=== PATIENT | female | born 1990 | race Caucasian/White ===

== ENCOUNTER 2018-04-26 08:50 | Emergency (ER) | payer OTHER ==
[2018-04-26 09:02] VITALS: BP 118/71; PULSE 72; TEMP 98.7; BMI 31.5
--- NOTE | 2018-04-26 09:38 | PDOC ---
History of Present Illness - General Stated Complaint: RASH Time Seen by Provider: 04/26/18 09:22 History Source: Patient Exam Limitations: No Limitations - History of Present Illness Initial Comments: 04/26/18 09:33 28 yr female with c/o ithcy rash for one week. Pt is 37 weeks , denies any change in lotion or shampoos. Pt denies fever or chills. no abd pain or diff breathing. Pt states active movement no complaints. Past History - Past Medical History Home Medications: Ambulatory Orders NK [No Known Home Medication] 04/26/18 COPD: No - Immunization History Immunization Up to Date: Yes - Suicide/Smoking/Psychosocial Hx Smoking History: Never smoked Have you smoked in the past 12 months: No Hx Alcohol Use: No Drug/Substance Use Hx: No Review of Systems - Review of Systems Able to Perform ROS?: Yes Is the patient limited Brazilian proficient: No Constitutional: No: Symptoms Reported HEENTM: No: Symptoms Reported Respiratory: No: Symptoms reported Cardiac (ROS): No: Symptoms Reported ABD/GI: No: Symptoms Reported : No: Symptoms Reported Musculoskeletal: No: Symptoms Reported Integumentary: Yes: Symptoms Reported, Rash *Physical Exam - Vital Signs Last Vital Signs Temp Pulse Resp BP Pulse Ox 98.7 F 72 16 118/71 97 04/26/18 08:58 04/26/18 08:58 04/26/18 08:58 04/26/18 08:58 04/26/18 08:58 - Physical Exam General Appearance: Yes: Nourished, Appropriately Dressed HEENT: positive: EOMI, [place], TMs Normal, Pharynx Normal Neck: positive: Supple Respiratory/Chest: positive: Lungs Clear, Normal Breath Sounds Cardiovascular: positive: Regular Rhythm, Regular Rate Gastrointestinal/Abdominal: positive: Normal Bowel Sounds, Soft Musculoskeletal: positive: Normal Inspection Extremity: positive: Normal Capillary Refill, Normal Inspection, Normal Range of Motion Integumentary: positive: Normal Color, Dry, Warm, Rash Neurologic: positive: Fully Oriented, Alert, Normal Mood/Affect, Normal Response , Motor Strength 5/5 Medical Decision Making - Medical Decision Making 04/26/18 09:36 cc: itchy rash all over for one week denies diff breathing or speaking no distress no fever rash is to the forearms and back no abd rash, no pustules or vesicles erythematous fine rash , puritic no hives will refer to derm and OB start antihistamines *DC/Admit/Observation/Transfer Diagnosis at time of Disposition: Rash and nonspecific skin eruption - Discharge Dispostion Disposition: HOME Condition at time of disposition: Good - Referrals Referrals: Stephy Tellez MD [Staff Physician] - - Patient Instructions Additional Instructions: please call your OB today to make a follow up appointment for this week take cool baths and use an oatmeal type soap to help soothe the rash make sure you have not changed any detergents, soaps, shampoo or any medicines take a daily antihistamine such as claritin or estrada daily for the itching 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
== END 2018-04-26 09:48 | disposition home or self-care (01) ==
LOC: JERFT 08:50
DX: O26.893 Other specified pregnancy related conditions, third trimester (principal); R21 Rash and other nonspecific skin eruption; Z3A.37 37 weeks gestation of pregnancy
CPT/HCPCS: 99281-25

== ENCOUNTER 2018-04-27 10:37 | Inpatient (IN) | payer OTHER ==
[2018-04-27 12:07] VITALS: BMI 31.5
[2018-04-27 12:09] LABS: BASO % 0.5 % (0-2.0); EOS % 0.4 % (0-4.5); HEMATOCRIT 36.4 % (32.4-45.2); MCH 30.2 pg (25.7-33.7); MEAN CELL VOLUME 91.4 fl (80-96); MEAN PLT VOLUME 9.9 fl (7.5-11.1); MONO % 7.5 % (3.8-10.2); NEUT % 76.6 % (42.8-82.8); PLATELET COUNT 189 K/MM3 (134-434); RBC 3.98 M/mm3 (3.60-5.2); RDW 13.2 % (11.6-15.6); WHITE BLOOD COUNT 7.9 K/mm3 (4.0-10.0)
[2018-04-27] MEDS ORDERED: DINOPROSTONE 10 MG VAGINAL SUPPOSITORY VG ONE (12:15)
[2018-04-27 12:27] LABS: ANION GAP 9 MMOL/L (8-16); BLOOD UREA NITROGEN 11 mg/dL (7-18); CALCIUM 8.5 mg/dL (8.5-10.1); CHLORIDE 106 mmol/L (98-107); CO2 22 mmol/L (21-32); CREATININE 0.5 mg/dL (0.55-1.3); GLUCOSE,RANDOM 73 mg/dL (74-106); POTASSIUM 3.8 mmol/L (3.5-5.1); SODIUM 137 mmol/L (136-145)
[2018-04-27 12:35] LABS: INR 1.04 (0.83-1.09); PROTHROMBIN TIME (PATIENT) 11.7 SEC (9.7-13.0)
[2018-04-27] MEDS ORDERED: TUBERCULIN PPD 5 TU/0.1ML SYRINGE (IN PATIENT USE ONLY) ID ONE (13:00)
--- NOTE | 2018-04-27 17:04 | HP ---
Admitting History and Physical - Admission Chief Complaint: indux for cholestasis History of Present Illness: 28 y/o at 37 weeks with dx of cholestasis for iol. R/b explained. in 2015. blood type is o pos, hep nr, rubella-, rpr neg, gbs neg. 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: Alzheimer's, CVA, Dementia, Migraine, Multiple Sclerosis, Peripheral Neuropathy, Parkinson's, Seizure, Syncope, TIA, Vertigo, Other Cardiovascular: No: AFIB, Aneurysm, Aortic Insufficiency, Aortic Stenosis, CAD, CHF, Deep Vein Thrombosis, HTN, Hyperlipdemia, IA, Mitral Insufficiency, Mitral Stenosis, Murmur, Pulmonary Hypertension, Other Pulmonary: No: Asthma, Bronchitis, Cancer, COPD, O2 Dependent, Pneumonia, Previously Intubated, Pulmonary Embolus, Pulmonary Fibrosis, Sleep Apnea, Other Gastrointestinal: No: Ascites, Cancer, Constipation, Crohn's Disease, Diverticulitis, Diverticulosis, Esophageal Varices, Gastritis, GERD, GI Bleed, Hemorrhoids, Hiatal Hernia, Inflamatory Bowel Disease, Irritable Bowel Disease, Pancreatitis, Peptic Ulcer Disease, Ulcerative Colitis, Other Hepatobiliary: No: Cirrhosis, Cholelithiasis, Cholecystitis, Choledocholithiasis , Hepatitis A, Hepatitis B, Hepatitis C, Other Renal/: No: Renal Failure, Renal Inusuff, BPH, Cancer, Hematuria, Hemodialysis , Neurogenic Bladder, Renal Calculi, UTI, Other Reproductive: No: Ectopic , Endometriosis, Fibroids, PID, Polycystic Ovary Syndrome, Postmenopausal, Other ...: 2 ...Para: 1 Heme/Onc: No: Anemia, B12 Deficiency, Bleeding Disorder, Cancer, Current Chemotherapy, Current Radiation Therapy, Hemochromatosis, Hypercoaguable State, Myeloproliferative Synd, Sickle Cell Disease, Sickle Cell Trait, Thrombocytopenia, Other Infectious Disease: No: AIDS, C-Diff, Herpes Zoster, HIV, MRSA, STD's, Tuberculosis, VREF, Other Psych: No: Addictions, Anxiety, Bipolar, Depression, Panic, Psychosis, Schizophrenia, Other Musculoskeletal: No: Bursitis, Chronic low back pain, Hemiparesis, Hemiplegia, Osteoarthritis, Paraplegia, Other Rheumatology: No: Fibromyalgia, Gout, Lupus, Rheumatoid Arthritis, Sarcoidosis, Vasculitis, Other ENT: No: Allergic Rhinitis, Sinusitis, Other Endocrine: No: [place]'s Disease, [place]'s Disease, Diabetes Insipidus, Diabetes Mellitus, Hyperparathyroidism, Hyperthyroidism, Hypothyroidism, Osteopenia, SIADH, Other Dermatology: No: Basal Cell, Cellulitis, Eczema, Melanoma, Psoriasis, Squamous Cell, Other - Smoking History Smoking history: Never smoked Have you smoked in the past 12 months: No - Alcohol/Substance Use Hx Alcohol Use: No Home Medications - Allergies Allergies/Adverse Reactions: Allergies Allergy/AdvReac Type Severity Reaction Status Date / Time No Known Allergies Allergy Verified 04/27/18 11:14 - Home Medications Home Medications: Ambulatory Orders Vitamins (Sjr) - 1 tab PO DAILY 04/27/18 Review of Systems - Review of Systems Constitutional: denies: No Symptoms, Chills, Diaphoresis, Fever, Lethargy, Loss of Appetite, Malaise, Night Sweats, Unintentional Wgt. Loss, Weakness, Other Eyes: reports: No Symptoms HENT: reports: No Symptoms Neck: reports: No Symptoms Cardiovascular: reports: No Symptoms Respiratory: reports: No Symptoms Gastrointestinal: reports: No Symptoms Genitourinary: reports: No Symptoms Breasts: reports: No Symptoms Reported Musculoskeletal: reports: No Symptoms Integumentary: reports: No Symptoms Neurological: reports: No Symptoms Physical Examination Vital Signs: Vital Signs Temperature 98.1 F 04/27/18 14:00 Pulse Rate 66 04/27/18 16:00 Respiratory Rate 20 04/27/18 16:00 Blood Pressure 121/71 04/27/18 16:00 O2 Sat by Pulse Oximetry (%) Constitutional: Yes: Well Nourished Eyes: Yes: WNL HENT: Yes: WNL Neck: Yes: WNL Cardiovascular: Yes: WNL Respiratory: Yes: WNL Gastrointestinal: Yes: WNL (1-2cm/long/-3) Breast(s): Yes: WNL Labs: CBC, BMP 04/27/18 11:45 04/27/18 11:45 Assessment/Plan as above cervidil placed in post fornix at 5pm nst reactive pain meds prn r/b explained
[2018-04-27] MEDS ORDERED: DEXTROSE 5%-WATER - 1,000 ML IV SCH (17:30)
--- NOTE | 2018-04-27 22:36 | PN ---
Ante-Partal Exam - Subjective Subjective: Pt s/p cervidil at 5pm. Comfortable Vital Signs: Vital Signs Temperature 98.3 F 04/27/18 20:00 Pulse Rate 69 04/27/18 20:00 Respiratory Rate 18 04/27/18 20:00 Blood Pressure 121/75 04/27/18 20:00 O2 Sat by Pulse Oximetry (%) Bleeding: No Headache: No Visual changes: No Right upper quadrant pain: No - Contractions Contractions: No Intensity: Unaware Monitor Mode: None - Exam during Labor Category: I Monitor Accelerations: Present Monitor Decelerations: None (pt with cervidil in place; category 1 tracing. Continue current care)
[2018-04-27] MEDS ORDERED: BUTORPHANOL TARTRATE 1 MG/ML VIAL IVPUSH PRN (22:59)
[2018-04-27] MEDS ORDERED: PROMETHAZINE HCL 25 MG/1 ML VIAL IVPB PRN (23:03)
[2018-04-28] MEDS ORDERED: LACTATED RINGERS SOLUTION 1,000 ML IV SCH (05:30)
[2018-04-28] MEDS ORDERED: OXYTOCIN 30 UNITS in 0.9% NS 30 UNIT/500 ML INFUS.BAG IVPB SCH (12:30)
--- NOTE | 2018-04-28 12:37 | PN ---
Progress Note (short form) - Note Progress Note: 28 yo @ 37 weeks gestation, EDC 05/18/18, admitted for induction of labor due to Cholestasis of . She's status post cervidil induction. FHR : Reassuring [place] : + irregular contractions VE : 2-3 / 70/-2 A/P : 37 weeks gestation Cholestasis of S/P Cervidil induction Start pitocin Analgesia as needed Anticipate
[2018-04-28] MEDS ORDERED: OXYTOCIN 30 UNITS in 0.9% NS 30 UNIT/500 ML INFUS.BAG IVPB ONE (13:35)
[2018-04-28] MEDS ORDERED: DEXTROSE 5%-LACTATED RINGERS 1,000 ML IV SCH (15:00)
--- NOTE | 2018-04-28 15:56 | PN ---
Progress Note (short form) - Note Progress Note: Patient re-evaluated. No complaints. VE : /-2 AROM ( light Mec ) A/P : Status post Cervidil induction Continue Pitocin augmentation Anticipate
[2018-04-28] MEDS ORDERED: WITCH HAZEL 50% (TUCKS) 40 PAD/JAR PAD TP PRN (19:13)
[2018-04-28] MEDS ORDERED: BENZOCAINE 28 GM HEMORRHOIDAL OINTMENT TP PRN (19:13)
[2018-04-28] MEDS ORDERED: BENZOCAINE 20% 57 GM BOTTLE TP PRN (19:13)
[2018-04-28] MEDS ORDERED: METHYLERGONOVINE MALEATE 0.2 MG/1 ML AMP IM PRN (19:13)
[2018-04-28] MEDS ORDERED: BISACODYL 10 MG SUPP.RECT RC PRN (19:13)
[2018-04-28] MEDS ORDERED: OXYTOCIN 20 UNITS in 0.9% NS 20 UNIT/1,000 ML INFUS.BAG IV SCH (19:15)
--- NOTE | 2018-04-28 19:16 | PN ---
Delivery - Delivery Vaginal Delivery: Spontaneous Episiotomy/Laceration: None EBL (cc): 300 Delivery, Single - Feeding Plan Initial Plan: Elected not to breastfeed exclusively throughout hospitalization Remarks - Remarks Remarks: Normal spontaneous vaginal delivery of a live infant over intact perineum. Nose / Oropharynx suctioned @ perineum. Cord clamped and cut. Placenta expelled spontaneously intact. 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 Mother in stable condition.
[2018-04-28] MEDS ORDERED: OXYTOCIN 20 UNITS in 0.9% NS 20 UNIT/1,000 ML INFUS.BAG IV ONE (20:17)
[2018-04-28] MEDS: ACETAMINOPHEN 325 MG TABLET (FP) PO PRN (21:40)
[2018-04-28] MEDS: IBUPROFEN 600 MG TABLET (FP) PO PRN (21:42)
[2018-04-29 07:10] LABS: BASO % 0.2 % (0-2.0); EOS % 0.3 % (0-4.5); HEMATOCRIT 32.6 % (32.4-45.2); HEMOGLOBIN 10.8 GM/dL (10.7-15.3); LYMPH % 16.9 % (8-40); MCH 30.7 pg (25.7-33.7); MCHC 33.2 g/dl (32.0-36.0); MEAN CELL VOLUME 92.3 fl (80-96); MEAN PLT VOLUME 9.8 fl (7.5-11.1); MONO % 7.3 % (3.8-10.2); NEUT % 75.3 % (42.8-82.8); PLATELET COUNT 165 K/MM3 (134-434); RBC 3.53 M/mm3 (3.60-5.2); RDW 13.5 % (11.6-15.6); WHITE BLOOD COUNT 11.6 K/mm3 (4.0-10.0)
[2018-04-29] MEDS: FERROUS SO4 325 MG TABLET (FP) PO SCH ×2 (07:51→18:06)
[2018-04-29] MEDS: IBUPROFEN 600 MG TABLET (FP) PO PRN (07:51)
[2018-04-29] MEDS: ACETAMINOPHEN 325 MG TABLET (FP) PO PRN (07:52)
[2018-04-29] MEDS: PRENATAL VITAMINS W/ FOLIC ACID TABLET (FP) PO SCH (10:00)
--- NOTE | 2018-04-29 15:23 | PN ---
Post Progress Note - Subjective Subjective: 28 yo Para 2 status post vaginl delivery, seen and evaluated. Doing well. Post Day: 1 Type of Delivery: Vital Signs: Vital Signs Temperature 98.1 F 04/29/18 10:00 Pulse Rate 55 L 04/29/18 10:00 Respiratory Rate 18 04/29/18 10:00 Blood Pressure 101/60 04/29/18 10:00 O2 Sat by Pulse Oximetry (%) Breast Exam: Yes: Soft Uterus: Yes: Fundus Firm Abdomen/GI: Yes: Abdomen soft Lochia: Yes: Rubra Lochia, amount: Moderate Extremities: Yes: Calves non-tender Perineum: Yes: Intact Activity: Ambulating - Labs Labs: CBC WBC 11.6 K/mm3 (4.0-10.0) H 04/29/18 06:35 RBC 3.53 M/mm3 (3.60-5.2) L 04/29/18 06:35 Hgb 10.8 GM/dL (10.7-15.3) 04/29/18 06:35 Hct 32.6 % (32.4-45.2) 04/29/18 06:35 MCV 92.3 fl (80-96) 04/29/18 06:35 MCH 30.7 pg (25.7-33.7) 04/29/18 06:35 MCHC 33.2 g/dl (32.0-36.0) 04/29/18 06:35 RDW 13.5 % (11.6-15.6) 04/29/18 06:35 Plt Count 165 K/MM3 (134-434) 04/29/18 06:35 MPV 9.8 fl (7.5-11.1) 04/29/18 06:35 Absolute Neuts (auto) 8.8 K/mm3 (1.5-8.0) H 04/29/18 06:35 Neutrophils % 75.3 % (42.8-82.8) 04/29/18 06:35 Lymphocytes % 16.9 % (8-40) 04/29/18 06:35 Monocytes % 7.3 % (3.8-10.2) 04/29/18 06:35 Eosinophils % 0.3 % (0-4.5) 04/29/18 06:35 Basophils % 0.2 % (0-2.0) 04/29/18 06:35 Nucleated RBC % 0 % (0-0) 04/29/18 06:35 Problem List - Problems (1) Status post normal vaginal delivery Code(s): [id number] - Assessment/Plan Status post vaginal delivery Stable Continue routine care
[2018-04-29] MEDS ORDERED: SENNOSIDES/DOCUSATE COMBO (SENNA PLUS) TABLET (UD) PO PRN (22:00)
[2018-04-30] MEDS: ACETAMINOPHEN 325 MG TABLET (FP) PO PRN (01:09)
[2018-04-30] MEDS: IBUPROFEN 600 MG TABLET (FP) PO PRN (01:10)
[2018-04-30] MEDS: FERROUS SO4 325 MG TABLET (FP) PO SCH (08:00)
[2018-04-30] MEDS: PRENATAL VITAMINS W/ FOLIC ACID TABLET (FP) PO SCH (10:00)
--- NOTE | 2018-04-30 10:06 | DS ---
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 Vital Signs: Vital Signs Temperature 98.5 F 04/29/18 21:38 Pulse Rate 66 04/29/18 21:38 Respiratory Rate 18 04/29/18 21:38 Blood Pressure 112/67 04/29/18 21:38 O2 Sat by Pulse Oximetry (%) Constitutional: Yes: Well Nourished Eyes: Yes: Conjunctiva Clear HENT: Yes: Atraumatic Neck: Yes: Supple Cardiovascular: Yes: Regular Rate and Rhythm Respiratory: Yes: Regular Gastrointestinal: Yes: Normal Bowel Sounds Pelvis: Yes: WNL External Genitalia: Yes: Normal Vaginal Exam: Yes: Normal Cervix: Yes: Normal Uterus: Yes: Firm ....Post : Yes: Uterus firm, Moderate lochia serosa Breast(s): Yes: WNL Extremities: Yes: WNL Neurological: Yes: Alert, Oriented ...Motor Strength: WNL Psychiatric: Yes: Alert, Oriented Labs: CBC, BMP 04/29/18 06:35 04/27/18 11:45 Delivery - Delivery Vaginal Delivery: Spontaneous Type of Anesthesia: None Episiotomy/Laceration: None EBL (cc): 300 Delivery, Single - Stages of Labor Date 1st Stage Initiatied: 04/28/18 Time 1st Stage Initiated: 13:00 Date 2nd Stage Initiated: 04/28/18 Time 2nd Stage Initiated: 18:55 Date of Delivery: 04/28/18 Time of Delivery: 19:06 Time Placenta Delivered: 19:07 - Condition of Zoology Technical Officer/Platform Stapler Present: Yes Name: Carroll Warner Gender: Male Weight: 7 lb 8 oz Position: Right, OA Total Hours ROM (Hrs/Mins): 3hrs/17mins - 1 Minute Total Score: 8 5 Minutes Total Score: 9 - Feeding Plan Initial Plan: Elected not to breastfeed exclusively throughout hospitalization Discharge Summary Reason For Visit: INDUCTION OF LABOR Current Active Problems Status post normal vaginal delivery (Acute) Procedures: Principal: Normal spontaneous vaginal delivery Hospital Course: Routine care Condition: Good - Instructions Diet, Activity, Other Instructions: Regular diet No douching, no sexual intercourse x 6 weeks F/U in clinic in 6 weeks Disposition: HOME - Home Medications Comprehensive Discharge Medication List: Ambulatory Orders Vitamins (Sjr) - 1 tab PO DAILY 04/27/18
[2018-04-30 11:31] VITALS: BP 108/69; PULSE 68; TEMP 98.2
== END 2018-04-30 12:30 | disposition home or self-care (01) | DRG 560 ==
LOC: JLDR 10:37 → J3W 04-28 21:32
PROVIDERS: ADMIT Obstetrics & Gynecology; ATTEND Obstetrics & Gynecology
PROC: 10E0XZZ Delivery of Products of Conception, External Approach (ICD-10-PCS; principal; 2018-04-28)
PROC: 3E0P7VZ Introduction of Hormone into Female Reproductive, Via Natural or Artificial Opening (ICD-10-PCS; 2018-04-28)
DX: O26.62 Liver and biliary tract disorders in childbirth (principal); K83.1 Obstruction of bile duct; Z3A.37 37 weeks gestation of pregnancy; Z37.0 Single live birth
CPT/HCPCS: 36415; 59409; 80048; 85025; 85610; 85730; 86593; 86850; 86900; 86901

== ENCOUNTER 2023-10-25 09:25 | Emergency (ER) | payer OTHER ==
[2023-10-25 09:33] VITALS: BMI 29.0
[2023-10-25] MEDS: SODIUM CHLORIDE 0.9% 500 ML INFUS.BAG IV ONE (10:51)
[2023-10-25] MEDS ORDERED: ACETAMINOPHEN INJECTION 100 ML IVPB ONE (10:52)
[2023-10-25] MEDS ORDERED: diphenhydrAMINE HCL 25 MG CAPSULE (FP) PO ONE (10:53)
[2023-10-25] MEDS ORDERED: METOCLOPRAMIDE HCL INJECTION 10 MG/2 ML VIAL ONE (10:53)
[2023-10-25 10:58] LABS: BASO % 1.2 % (0-2.0); EOS % 2.4 % (0-4.5); HEMATOCRIT 39.7 % (32.4-45.2); HEMOGLOBIN 13.8 GM/dL (10.7-15.3); MCH 32.5 pg (25.7-33.7); MCHC 34.9 g/dl (32.0-36.0); MEAN CELL VOLUME 93.2 fl (80-96); MEAN PLT VOLUME 9.4 fl (7.5-11.1); MONO % 6.2 % (3.8-10.2); NEUT % 69.2 % (42.8-82.8); PLATELET COUNT 255 10^3/uL (134-434); RBC 4.26 M/mm3 (3.60-5.2); RDW 13.1 % (11.6-15.6); WHITE BLOOD COUNT 8.7 K/mm3 (4.0-10.0)
[2023-10-25] MEDS: ACETAMINOPHEN 1000 MG/100 ML BAG IVPB ONE (11:01)
[2023-10-25] MEDS: diphenhydrAMINE HCL 25 MG CAPSULE (FP) PO ONE (11:01)
[2023-10-25] MEDS: METOCLOPRAMIDE HCL INJECTION 10 MG/2 ML VIAL IVPUSH ONE (11:01)
[2023-10-25] MEDS ORDERED: KETOROLAC TROMETHAMINE 15 MG/ML VIAL ONE (11:22)
[2023-10-25] MEDS: KETOROLAC TROMETHAMINE 15 MG/ML VIAL IVPUSH ONE (11:25)
[2023-10-25 11:33] LABS: POTASSIUM 5.3 mmol/L (3.5-5.1)
[2023-10-25 11:36] LABS: CALCIUM 9.5 mg/dL (8.5-10.1)
[2023-10-25 11:37] LABS: ALBUMIN 4.1 g/dl (3.4-5.0); BLOOD UREA NITROGEN 19.7 mg/dL (7-18)
[2023-10-25 11:40] LABS: CREATININE 0.7 mg/dL (0.55-1.3)
[2023-10-25 11:41] LABS: BILIRUBIN,TOTAL 0.4 mg/dL (0.2-1); TOT PROT 8.2 g/dl (6.4-8.2)
[2023-10-25 12:23] VITALS: BP 106/71; PULSE 76; RESP 17; TEMP 97.6
== END 2023-10-25 12:33 | disposition home or self-care (01) ==
LOC: JER 09:25 → JERFT 09:25
PROC: 3E030NZ Introduction of Analgesics, Hypnotics, Sedatives into Peripheral Vein, Open Approach (ICD-10-PCS; principal; 2023-10-25)
PROC: 3E0303Z Introduction of Anti-inflammatory into Peripheral Vein, Open Approach (ICD-10-PCS; 2023-10-25)
PROC: 3E030GC Introduction of Other Therapeutic Substance into Peripheral Vein, Open Approach (ICD-10-PCS; 2023-10-25)
DX: R51.9 Headache, unspecified (principal); R09.81 Nasal congestion; R42 Dizziness and giddiness; J32.9 Chronic sinusitis, unspecified
CPT/HCPCS: 36415; 70450-TC; 80053; 84703; 85025; 96374; 96375; 99284-25; J0131